=== PATIENT | male | born 1965 | race Caucasian/White ===

== ENCOUNTER 2022-01-31 15:06 | Emergency (ER) | payer SELFPAY ==
[2022-01-31 15:30] VITALS: BP 132/69; PULSE 66; TEMP 98.9; BMI 25.7
[2022-01-31] MEDS ORDERED: MAG HYDROX/AL HYDROX/SIMETH 30 ML UNIT-DOSE CUP PO ONE (15:35)
[2022-01-31] MEDS ORDERED: MAG HYDROX/AL HYDROX/SIMETH 30 ML UNIT-DOSE CUP ONE (15:36)
== END 2022-01-31 16:28 | disposition home or self-care (01) ==
LOC: FER 15:06
DX: R13.10 Dysphagia, unspecified (principal)
CPT/HCPCS: 71046-TC-FY; 99283-25